=== PATIENT | female | born 1995 | race Caucasian/White ===

== ENCOUNTER 2017-09-21 07:54 | Inpatient (IN) | payer OTHER ==
[2017-09-21] MEDS ORDERED: CARBOPROST 250 MCG INJ IM ×2 (09:00→13:00)
[2017-09-21] MEDS ORDERED: METHYLERGONOVINE 0.2 MG INJ IM ×2 (09:00→13:00)
[2017-09-21] MEDS ORDERED: MISOPROSTOL 200 MCG TAB PR ×2 (09:00→13:00)
[2017-09-21 09:14] LABS: ADD MAN DIFF? NO
[2017-09-21 09:20] LABS: WHITE BLOOD COUNT 10.4 10^3/ul (4.8-10.8)
[2017-09-21 09:20] LABS: BASOPHILS % 0.2 % (0.0-2.0); HEMATOCRIT 32.3 % (37.0-47.0); HEMOGLOBIN 10.2 g/dl (12.0-16.0); LYMPHOCYTES # 1.9 10^3/ul (0.8-2.9); LYMPHOCYTES % 18.3 % (18.0-55.0); MEAN CORPUSCULAR HEMOGLOBIN 28.9 pg (29.0-33.0); MEAN CORPUSCULAR HGB CONC 31.6 g/dl (32.0-37.0); MEAN CORPUSCULAR VOLUME 91.5 fl (72.0-104.0); MEAN PLATELET VOLUME 11.6 fl (7.4-10.4); MONOCYTE # 0.6 10^3/ul (0.3-0.9); MONOCYTES % 5.8 % (0.0-13.0); NEUTROPHIL # 7.8 10^3/ul (1.6-7.5); NEUTROPHILS % 75.3 % (30.0-74.0); PLATELET COUNT 309 10^3/UL (140-415); RED BLOOD COUNT 3.53 10^6/ul (4.20-5.40); RED CELL DISTRIBUTION WIDTH 15.5 % (11.5-14.5)
[2017-09-21] MEDS: BUTORPHANOL 2 MG INJ IV (09:24)
[2017-09-21] MEDS: LACTATED RINGER'S 1,000 ML IV (09:30)
[2017-09-21 09:39] LABS: INR 0.89; PARTIAL THROMBOPLASTIN TIME 24.7 Sec (25.0-35.0); PROTIME 12.1 Sec (11.9-14.9); PT RATIO 0.9
[2017-09-21 10:03] LABS: ALANINE AMINOTRANSFERASE 23 IU/L (13-69); ALBUMIN 3.7 g/dl (3.3-4.9); ALBUMIN/GLOBULIN RATIO 1.05; ALKALINE PHOSPHATASE 257 IU/L (42-121); ANION GAP 16 (8-16); ASPARTATE AMINO TRANSFERASE 25 IU/L (15-46); BLOOD UREA NITROGEN 7 mg/dl (7-20); CALCIUM 9.2 mg/dl (8.4-10.2); CARBON DIOXIDE 22 mmol/L (21-31); CHLORIDE 108 mmol/L (97-110); CREATININE 0.65 mg/dl (0.44-1.00); GLUCOSE 91 mg/dl (70-220); POTASSIUM 3.8 mmol/L (3.5-5.1); SODIUM 142 mmol/L (135-144); TOTAL PROTEIN 7.2 g/dl (6.1-8.1); URIC ACID 6.5 mg/dl (3.1-7.9)
[2017-09-21] MEDS: MINERAL OIL LIGHT 10 ML VIAL TOP (12:20)
[2017-09-21] MEDS: LIDOCAINE 1% (MPF) 30 ML INJ INJ (12:20)
[2017-09-21] MEDS: OXYTOCIN 30 UNITS/LR 500 ML IV ×4 (12:26→20:30)
[2017-09-21] MEDS ORDERED: LACTATED RINGER'S 1,000 ML IV* (12:58)
[2017-09-21] MEDS ORDERED: DEXTROSE 5%-LR 1,000 ML IV (12:58)
[2017-09-21] MEDS ORDERED: OXYTOCIN 30 UNITS/LR 500 ML IV (13:00)
[2017-09-21] MEDS ORDERED: DIPHENHYDRAMINE 50 MG INJ IV (13:00)
[2017-09-21] MEDS ORDERED: ZOLPIDEM 5 MG TAB PO (13:00)
[2017-09-21] MEDS ORDERED: ONDANSETRON 4 MG INJ IV (13:00)
[2017-09-21] MEDS ORDERED: DIBUCAINE 1% 30 GM OINT PR (13:00)
[2017-09-21] MEDS ORDERED: OXYCODONE/ASPIRIN (4.88/325) TAB PO (13:00)
[2017-09-21] MEDS ORDERED: ACETAMINOPHEN 325 MG TAB PO (13:00)
[2017-09-21 14:54] LABS: RAPID PLASMA REAGIN NONREACTIVE (NR)
[2017-09-21 15:24] LABS: HEPATITIS B SURFACE ANTIGEN NEGATIVE (NEGATIVE)
[2017-09-21] MEDS: WITCH HAZEL/GLYCERIN PAD PR (17:28)
[2017-09-21] MEDS: BENZOCAINE 20% 56 ML SPRAY TOP (17:28)
[2017-09-21] MEDS: LANOLIN 7 GM TUBE TOP (17:28)
[2017-09-21] MEDS: IBUPROFEN 600 MG TAB PO ×2 (17:29→23:37)
[2017-09-22] MEDS: OXYTOCIN 30 UNITS/LR 500 ML IV ×8 (00:30→20:28)
[2017-09-22] MEDS: IBUPROFEN 600 MG TAB PO ×4 (05:44→23:59)
[2017-09-22] MEDS: SENNA/DOCUSATE NA (8.6MG/50MG) TAB PO (05:50)
[2017-09-22 08:25] LABS: ADD MAN DIFF? NO
[2017-09-22 08:39] LABS: BASOPHILS % 0.2 % (0.0-2.0); EOSINOPHILS % 0.1 % (0.0-7.0); HEMOGLOBIN 7.2 g/dl (12.0-16.0); LYMPHOCYTES # 3.2 10^3/ul (0.8-2.9); LYMPHOCYTES % 24.6 % (18.0-55.0); MEAN CORPUSCULAR HGB CONC 31.3 g/dl (32.0-37.0); MEAN CORPUSCULAR VOLUME 92.7 fl (72.0-104.0); MEAN PLATELET VOLUME 11.4 fl (7.4-10.4); MONOCYTES % 7.2 % (0.0-13.0); NEUTROPHIL # 8.8 10^3/ul (1.6-7.5); NEUTROPHILS % 67.2 % (30.0-74.0); PLATELET COUNT 255 10^3/UL (140-415); RED BLOOD COUNT 2.48 10^6/ul (4.20-5.40); RED CELL DISTRIBUTION WIDTH 15.6 % (11.5-14.5)
[2017-09-22 08:39] LABS: WHITE BLOOD COUNT 13.1 10^3/ul (4.8-10.8)
[2017-09-22] MEDS: INFLUENZA VIRUS VACCINE 0.5 ML (DISPENSING) IM* (10:00)
[2017-09-23] MEDS: IBUPROFEN 600 MG TAB PO ×2 (05:33→12:00)
[2017-09-23] MEDS: OXYTOCIN 30 UNITS/LR 500 ML IV ×2 (08:30→12:30)
[2017-09-23] MEDS: MEASLES,MUMPS,RUBELLA VACCINE INJ SC* (09:00)
[2017-09-23] MEDS: SENNA/DOCUSATE NA (8.6MG/50MG) TAB PO (12:10)
[2017-09-23] MEDS: DIPHTH/TET/ACEL PERTUSS (ADULT) 0.5 ML VIAL IM* (12:40)
[2017-09-24] MEDS ORDERED: INFLUENZA VIRUS VACCINE 0.5 ML (DISPENSING) IM* (09:00)
== END 2017-09-23 15:50 | disposition home or self-care (01) | DRG 775 ==
LOC: OBT 07:54 → L-D 07:55 → OBT 08:09 → L-D 08:05 → PP1 15:10
PROC: 10E0XZZ Delivery of Products of Conception, External Approach (ICD-10-PCS; principal; 2017-09-21)
PROC: 0UQGXZZ Repair Vagina, External Approach (ICD-10-PCS; 2017-09-21)
PROC: 3E033VJ Introduction of Other Hormone into Peripheral Vein, Percutaneous Approach (ICD-10-PCS; 2017-09-21)
DX: O48.0 Post-term pregnancy (principal); O71.4 Obstetric high vaginal laceration alone; Z3A.40 40 weeks gestation of pregnancy; Z37.0 Single live birth
CPT/HCPCS: 80053; 84560; 85025; 85384; 85610; 85730; 86592; 86900; 86901; 87340; 90686; 90715

== ENCOUNTER 2017-11-29 12:07 | Emergency (ER) | payer OTHER | END 2017-11-29 15:17 | disposition home or self-care (01) | LOC: E/R 12:07 | DX: M79.1 Myalgia (principal) | CPT/HCPCS: 99283; Z7502 ==

== ENCOUNTER 2017-12-21 17:55 | Emergency (ER) | payer OTHER | END 2017-12-21 18:57 | disposition home or self-care (01) | LOC: E/R 18:57 | DX: L03.012 Cellulitis of left finger (principal) | CPT/HCPCS: 99283; Z7502 ==

== ENCOUNTER 2018-11-12 22:24 | Emergency (ER) | payer SELFPAY, OTHER | END 2018-11-12 22:35 | disposition left against medical advice (07) | LOC: E/R 22:24 | DX: Z53.21 Procedure and treatment not carried out due to patient leaving prior to being seen by health care provider (principal) | CPT/HCPCS: 93005 ==